=== PATIENT | male | born 1960 | race African-American/Black ===

== ENCOUNTER 2018-07-29 22:20 | Emergency (ER) | payer BC ==
[~2018-07-29] VITALS: Ht 175.3 cm; Wt 115.0 kg
[2018-07-29 23:51] LABS: BASOPHILS % 1.2 % (0.0-2.0); EOSINOPHILS % 5.1 % (0.0-5.0); HEMATOCRIT. 40.3 % (42.0-52.0); HEMOGLOBIN. 14.1 g/dL (14.0-18.0); MEAN CORPUSCULAR VOLUME 94.1 fL (80.0-94.0); MEAN PLATELET VOLUME 7.8 fl (7.4-10.4); NEUTROPHILS % 41.7 % (40.0-76.0); PLATELET 316 x1000/uL (130-400); RED BLOOD CELL COUNT 4.28 mill/uL (4.7-6.1); RED CELL DISTRIBUTION WIDTH 13.3 % (11.6-14.6)
[2018-07-30 00:03] LABS: CHLORIDE 109 mEq/L (98-107)
[2018-07-30] MEDS ORDERED: RIVAROXABAN 10 MG TABLET PO STA (00:41)
[2018-07-30 01:32] VITALS: BP 120/72
== END 2018-07-30 01:52 | disposition home or self-care (01) ==
LOC: ER 22:20
DX: I82.402 Acute embolism and thrombosis of unspecified deep veins of left lower extremity (principal); R03.0 Elevated blood-pressure reading, without diagnosis of hypertension
CPT/HCPCS: 36415; 80048; 99284